=== PATIENT | male | born 1950 | race Caucasian/White ===

== ENCOUNTER 2025-01-13 09:20 | Outpatient (CLI) | payer MEDICARE ==
--- NOTE | 2025-01-13 12:24 | RADIOLOGY REPORT ---
CLINICAL INFORMATION: Right fibula fracture. TECHNIQUE: Axial CT images of the right ankle were obtained without IV contrast. Coronal and sagittal reformatted images were obtained, reviewed, and stored. All CT scans at this medical facility are p erformed using dose modulation techniques as appropriate to a performed exam including the following: Automated exposure control was utilized; adjustment of the MA and/or KV according to patient size; a nd use of iterative reconstruction technique. CTDIvol = 14.5 mGy DLP = 492.6 mGy-cm COMPARISON: Radiographs dated 09/17/2024. FINDINGS: Obliquely oriented fracture of the distal fibula, with the distal aspect of the fracture pl ane extending to the level of the tibiotalar joint. There is sclerosis along the fracture margins. Po ssible minimal partial osseous union along the posterior superior aspect of the fracture plane, with the rest of the fracture remaining ununited. There are small adjacent osseous fragments. No other ev idence of fracture. Talar dome appears smooth. No widening of the ankle mortise visualized. Small salvador ntar calcaneal spur. [id number] subcutaneous edema around the ankle. IMPRESSION: Chronic appearing, mostly ununited fracture of the distal fibula as described above.
== END 2025-01-13 23:59 | disposition home or self-care (01) ==
LOC: RAD 09:20
PROVIDERS: ATTEND Podiatrist Foot & Ankle Surgery
DX: S82.831K Other fracture of upper and lower end of right fibula, subsequent encounter for closed fracture with nonunion (principal); Z72.0 Tobacco use; M25.471 Effusion, right ankle; X58.XXXD Exposure to other specified factors, subsequent encounter
CPT/HCPCS: 73700; A6213; A6250